=== PATIENT | female | born 2000 | race Hispanic/Latino ===

== ENCOUNTER 2019-03-14 20:24 | Emergency (ER) | payer OTHER ==
[~2019-03-14] VITALS: Ht 157.5 cm; Wt 52.8 kg
[2019-03-14 22:18] LABS: HEMATOCRIT 35.6 % (36.0-47.0); HEMOGLOBIN 12.7 g/dl (12.0-15.5); MEAN CORPUSCULAR HEMOGLOBIN 31.5 pg (27.0-33.0); MEAN CORPUSCULAR HGB CONC 35.7 g/dl (32.0-36.5); MEAN CORPUSCULAR VOLUME 88.3 fl (80.0-96.0); PLATELET COUNT, AUTOMATED 222 10^3/uL (150-450); RED BLOOD COUNT 4.03 10^6/uL (4.00-5.40); WHITE BLOOD COUNT 10.2 10^3/uL (4.0-10.0)
[2019-03-14 22:29] LABS: INR 1.09; PROTHROMBIN TIME 13.8 SECONDS (11.8-14.0)
[2019-03-14 22:30] LABS: PARTIAL THROMBOPLASTIN TIME 34.5 SECONDS (25.0-38.4)
[2019-03-14] MEDS ORDERED: REGL5TAB2 PO (23:08)
[2019-03-14] MEDS ORDERED: NON-325T5 PO (23:08)
[2019-03-14 23:24] VITALS: BP 118/64
--- NOTE | 2019-03-15 06:33 | ECGEPIP ---
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
--- NOTE | 2019-03-16 12:01 | REP ---
CHEST PA AND LATERAL: 03/14/2019. CLINICAL HISTORY: Left-sided chest pain. Patient . Appropriate shielding. FINDINGS: There are no prior studies. The two-view show lungs well inflated and without infiltrate, effusion, atelectasis, or mass. The heart, mediastinal and hilar contours are normal. The aorta and airway are intact. The bony thorax shows no focal lesion. There is no free air under the diaphragm. IMPRESSION: 1. No acute cardiopulmonary change. Electronically Signed by Chaim Arenas MD 03/16/2019 12:22 P
== END 2019-03-14 23:37 | disposition home or self-care (01) ==
LOC: M ED 20:24
DX: G43.909 Migraine, unspecified, not intractable, without status migrainosus (principal); R07.89 Other chest pain; R00.0 Tachycardia, unspecified

== ENCOUNTER → 2019-04-02 | Outpatient (CLI) | payer OTHER ==
[~2019-04-02] MED LIST: NON-325T5 PO; REGL5TAB2 PO
[2019-04-02 14:09] LABS: BASO % 0.3 % (0.0-1.0); EOS # 0.3 10^3/uL (0.0-0.5); EOS % 2.8 % (0.0-3.0); HEMATOCRIT 38.1 % (36.0-47.0); LYMPH # 1.6 10^3/uL (1.5-5.0); LYMPH % 13.3 % (24.0-44.0); MEAN CORPUSCULAR HEMOGLOBIN 31.6 pg (27.0-33.0); MEAN CORPUSCULAR HGB CONC 34.1 g/dl (32.0-36.5); MEAN CORPUSCULAR VOLUME 92.7 fl (80.0-96.0); MONO # 0.7 10^3/uL (0.0-0.8); MONO % 5.7 % (0.0-5.0); NEUTROPHILS # 9.2 10^3/uL (1.5-8.5); NEUTROPHILS % 77.2 % (36.0-66.0); PLATELET COUNT, AUTOMATED 235 10^3/uL (150-450); RED BLOOD COUNT 4.11 10^6/uL (4.00-5.40)
[2019-04-02 15:28] LABS: GC DNA AMPLIFICATION NEGATIVE (NEGATIVE)
[2019-04-03 06:28] LABS: CHLAMYDIA DNA AMPLIFICATION NEGATIVE (NEGATIVE)
[2019-04-03 06:28] LABS: WHITE BLOOD COUNT 11.9 10^3/uL (4.0-10.0)
[2019-04-03 12:23] LABS: HEPATITIS B SURFACE ANTIGEN NEGATIVE (NEGATIVE); HEPATITIS C VIRUS ABY INDEX 0.1 INDEX (<0.8); HIV 1&2 SCREEN CENTAUR NEGATIVE (NEGATIVE); RUBELLA IgG QUALITATIVE IMMUNE (IMMUNE)
== END ==
LOC: M LAB 13:14
PROVIDERS: ATTEND Advanced Practice Midwife
DX: Z34.02 Encounter for supervision of normal first pregnancy, second trimester (principal); Z3A.00 Weeks of gestation of pregnancy not specified

== ENCOUNTER → 2019-04-15 | Outpatient (CLI) | payer OTHER ==
[~2019-04-15] MED LIST changes: +DOK1CAP7; +FERR32TA; +PREN1CHW6 PO; +PRENTAB9 PO
--- NOTE | 2019-04-16 03:30 | REP ---
Clinical: Anatomical evaluation. Comparison: None . Findings: Examination demonstrates a single live intrauterine in variable presentation. motion is identified by technologist. Placenta is noted posterior fundal and grade zero without evidence for placenta previa or abruption. Amniotic fluid volume is normal. Cervix measures 4.6 cm in length and appears closed. No evidence for nuchal cord. Gestational age by LMP 19 weeks 2 days with MICAELA 09/07/2019 Gestational age by current measurements 19 weeks 0 days with MICAELA 09/09/2019 . FHR equals 150 beats per minute. BPD 4.4 cm 19 weeks 2 days HC 15.3 cm 18 weeks 2 days AC 14.2 cm 19 weeks 4 days FL 2.8 cm 18 weeks 4 days HL 2.7 cm 18 weeks 4 days HC/AC ratio 1.08 Estimated weight 269 grams ( 36 percentile). Anatomical assessment demonstrates normal structures including cranium, choroid plexus, cavum, cerebellum/posterior fossa, facial features, lungs, four-chamber heart/ventricular outflow tracts, diaphragm, stomach, cord insertion/three-vessel cord, kidneys/bladder, spine, and extremities. Echogenic focus within the left cardiac ventricle likely prominent chordae tendineae. Impression: 1. Single live intrauterine in variable presentation demonstrating appropriate interval growth. 2. Anatomical assessment as described above. Electronically Signed by Jaspal Castillo MD 04/16/2019 03:21 A
== END ==
LOC: M RAD 07:56
PROVIDERS: ATTEND Advanced Practice Midwife
DX: Z34.02 Encounter for supervision of normal first pregnancy, second trimester (principal); Z36.89 Encounter for other specified antenatal screening

== ENCOUNTER 2019-05-05 15:47 | Emergency (ER) | payer OTHER ==
[~2019-05-05] VITALS: Ht 157.5 cm; Wt 59.1 kg
[~2019-05-05 15:47] MED LIST changes: -DOK1CAP7; -FERR32TA; -PREN1CHW6 PO; -PRENTAB9 PO
[2019-05-05] MEDS ORDERED: PREN1CHW6 PO (15:57)
[2019-05-05 17:33] VITALS: BP 110/55
== END 2019-05-05 17:37 | disposition home or self-care (01) ==
LOC: M ED 15:47
DX: Z77.29 Contact with and (suspected) exposure to other hazardous substances (principal)

== ENCOUNTER → 2019-06-16 | Outpatient (CLI) | payer OTHER ==
[~2019-06-16] MED LIST changes: +PREN1CHW6 PO
[2019-06-16 14:51] LABS: HEMATOCRIT 32.5 % (36.0-47.0); HEMOGLOBIN 10.3 g/dl (12.0-15.5); MEAN CORPUSCULAR HEMOGLOBIN 29.7 pg (27.0-33.0); MEAN CORPUSCULAR HGB CONC 31.7 g/dl (32.0-36.5); MEAN CORPUSCULAR VOLUME 93.7 fl (80.0-96.0); PLATELET COUNT, AUTOMATED 283 10^3/uL (150-450); RED BLOOD COUNT 3.47 10^6/uL (4.00-5.40); WHITE BLOOD COUNT 9.8 10^3/uL (4.0-10.0)
== END ==
LOC: M LAB 13:05
PROVIDERS: ATTEND Advanced Practice Midwife
DX: O26.02 Excessive weight gain in pregnancy, second trimester (principal); Z3A.00 Weeks of gestation of pregnancy not specified

== ENCOUNTER 2019-07-27 08:54 | Emergency (ER) | payer OTHER ==
[~2019-07-27] VITALS: Ht 157.5 cm; Wt 70.8 kg
[2019-07-27] MEDS ORDERED: DOK1CAP7 (08:59)
[2019-07-27] MEDS ORDERED: FERR32TA (08:59)
[2019-07-27 09:54] LABS: BASO % 0.2 % (0.0-1.0); EOS # 0.2 10^3/uL (0.0-0.5); EOS % 1.9 % (0.0-3.0); HEMATOCRIT 33.2 % (36.0-47.0); HEMOGLOBIN 10.8 g/dl (12.0-15.5); LYMPH # 1.5 10^3/uL (1.5-5.0); LYMPH % 12.5 % (24.0-44.0); MEAN CORPUSCULAR HEMOGLOBIN 30.3 pg (27.0-33.0); MEAN CORPUSCULAR HGB CONC 32.5 g/dl (32.0-36.5); MONO # 1.1 10^3/uL (0.0-0.8); MONO % 8.6 % (0.0-5.0); NEUTROPHILS # 9.3 10^3/uL (1.5-8.5); NEUTROPHILS % 75.1 % (36.0-66.0); PLATELET COUNT, AUTOMATED 221 10^3/uL (150-450); RED BLOOD COUNT 3.57 10^6/uL (4.00-5.40); WHITE BLOOD COUNT 12.4 10^3/uL (4.0-10.0)
[2019-07-27 10:27] LABS: ALT/SGPT 14 U/L (12-78); BILIRUBIN,DIRECT 0.1 MG/DL (0.0-0.2); BILIRUBIN,TOTAL 0.4 MG/DL (0.2-1.0); BLOOD UREA NITROGEN 6 MG/DL (7-18); CALCIUM LEVEL 8.8 MG/DL (8.5-10.1); CARBON DIOXIDE LEVEL 21 MEQ/L (21-32); CHLORIDE LEVEL 108 MEQ/L (98-107); CREATININE FOR GFR 0.52 MG/DL (0.55-1.30); GLOMERULAR FILTRATION RATE > 60.0 (>60); GLUCOSE, FASTING 99 MG/DL (70-100); POTASSIUM SERUM 3.9 MEQ/L (3.5-5.1); SODIUM LEVEL 140 MEQ/L (136-145); TOTAL PROTEIN 6.6 GM/DL (6.4-8.2)
[2019-07-27 10:28] LABS: ALBUMIN 2.6 GM/DL (3.2-5.2)
[2019-07-27] MEDS ORDERED: CEPHALEXIN 500 MG CAP PO ONE (11:00)
[2019-07-27 11:06] VITALS: BP 104/63
== END 2019-07-27 11:09 | disposition home or self-care (01) ==
LOC: M ED 08:54
DX: O99.713 Diseases of the skin and subcutaneous tissue complicating pregnancy, third trimester (principal); L29.9 Pruritus, unspecified; O23.43 Unspecified infection of urinary tract in pregnancy, third trimester; Z3A.34 34 weeks gestation of pregnancy

== ENCOUNTER → 2019-07-30 | Outpatient (CLI) | payer OTHER ==
[~2019-07-30] MED LIST changes: +DOK1CAP7; +FERR32TA
== END ==
LOC: M PLALAB 10:36
PROVIDERS: ATTEND Advanced Practice Midwife
DX: Z34.93 Encounter for supervision of normal pregnancy, unspecified, third trimester (principal)

== ENCOUNTER 2019-08-18 09:29 | Outpatient (CLI) | payer OTHER ==
[~2019-08-18] VITALS: Ht 157.5 cm; Wt 75.0 kg
[2019-08-18] MEDS ORDERED: PRENTAB9 PO (09:46)
--- NOTE | 2019-08-18 16:25 | IPN ---
DATE: 08/18/2019 A 19-year-old 1 at 37-1/7 weeks gestation, presents with leakage of a moderate amount of fluid spontaneously per vagina at 8:45 a.m. on the day of evaluation when she was just standing at the sink and eating something. She continued to leak small amounts after that. She did not have to wear a pad, however. She has occasional mild contractions. They have not increased in intensity. She presents to triage for evaluation. She was noted to be breech at her last visit. OBJECTIVE: She is afebrile. Blood pressure 124/74, pulse 84. She is in no apparent distress. Head and neck exam: Normal. Lungs: Clear. Heart: Regular rate and rhythm. Abdomen: Nontender, gravid. heart tones: Category 1. Contractions: Irregular, mild. Sterile speculum exam: Negative fern, negative pool, indeterminate Nitrazine. Cervix: 1 cm, 50%, high, breech. Extremities: Nontender. ASSESSMENT: A 19-year-old 1 at 37-1/7 weeks gestation, presents for evaluation with no evidence of ruptured membranes on exam. PLAN: The patient offered and accepted attempted external cephalic version, consent signed. This will be performed today. No evidence of leaking amniotic fluid. Plan to discharge home after attempted external version.
[2019-08-27] MEDS ORDERED: [UNRECOGNIZED DRUG - OTHER] PO (07:59)
[2019-08-27] MEDS ORDERED: COUGH PO (07:59)
== END 2019-08-18 14:53 | disposition home or self-care (01) ==
LOC: M LDO 09:29
PROVIDERS: ATTEND Specialist
DX: Z03.71 Encounter for suspected problem with amniotic cavity and membrane ruled out (principal); O32.1XX0 Maternal care for breech presentation, not applicable or unspecified; Z3A.37 37 weeks gestation of pregnancy
CPT/HCPCS: 59025; 76815; G0378; G0463

== ENCOUNTER 2019-08-31 04:53 | Inpatient (IN) | payer OTHER ==
[~2019-08-31] VITALS: Ht 157.5 cm; Wt 74.6 kg
[~2019-08-31 04:53] MED LIST changes: +COUGH PO; +PRENTAB9 PO; +[UNRECOGNIZED DRUG - OTHER] PO
[2019-08-31 05:37] VITALS: BP 109/60
[2019-08-31 05:53] LABS: HEMATOCRIT 37.9 % (36.0-47.0); HEMOGLOBIN 12.1 g/dl (12.0-15.5); MEAN CORPUSCULAR HEMOGLOBIN 28.5 pg (27.0-33.0); MEAN CORPUSCULAR HGB CONC 31.9 g/dl (32.0-36.5); MEAN CORPUSCULAR VOLUME 89.4 fl (80.0-96.0); PLATELET COUNT, AUTOMATED 272 10^3/uL (150-450); RED BLOOD COUNT 4.24 10^6/uL (4.00-5.40); WHITE BLOOD COUNT 8.5 10^3/uL (4.0-10.0)
[2019-08-31] MEDS ORDERED: LACTATED RINGER'S 1000 ML IV ONE (06:00)
[2019-08-31] MEDS ORDERED: LR 1,000 ML IV SCH ×2 (06:00→09:00)
[2019-08-31] MEDS ORDERED: BICITRA 30ML SOLN UDC PO ONE (06:00)
[2019-08-31] MEDS ORDERED: ceFAZolin SOD 2 GM in IV 1 EA IV ONE (06:00)
[2019-08-31] MEDS ORDERED: OXYC1TAB23 PO (06:24)
[2019-08-31] MEDS ORDERED: MORPHINE PRES-FREE INJ 10 MG/10 ML VIAL (J2274) As Ordered ONE (06:48)
[2019-08-31] MEDS ORDERED: METOCLOPRAMIDE INJ 10MG/2ML VIAL (J2765) IV PRN (08:10)
[2019-08-31] MEDS ORDERED: NALBUPHINE HCL 10 MG/ML AMP (J2300) IV PRN ×2 (08:10→09:30)
[2019-08-31] MEDS ORDERED: ONDANSETRON 4MG/2ML VIAL (J2405) IV PRN ×2 (08:10→09:30)
[2019-08-31] MEDS ORDERED: NALOXONE INJ 0.4 MG/1 ML VIAL (J2310) IV PRN ×2 (08:10)
[2019-08-31] MEDS ORDERED: diphenhydrAMINE INJ 50MG/ML VIAL (J1200) IV PRN (08:10)
[2019-08-31] MEDS ORDERED: OXYTOCIN 30 UNITS IN 0.9% NaCl 500ML IV BAG (J2590) As Ordered ONE (08:17)
[2019-08-31] MEDS ORDERED: PHENYLephrine HCL 500 MCG/5 ML (100MCG/ML) SYRINGE (J2370) As Ordered ONE ×2 (08:17→08:18)
[2019-08-31] MEDS ORDERED: dexameTHASONE 4 MG/ML 1ML VIAL (J1100) As Ordered ONE (08:17)
[2019-08-31] MEDS ORDERED: ePHEDrine SULFATE 25 MG/5 ML(5MG/ML) SYRINGE As Ordered ONE (08:17)
[2019-08-31] MEDS ORDERED: OXYTOCIN INJ 10 UNITS/ML VIAL (J2590) As Ordered ONE (08:35)
[2019-08-31] MEDS ORDERED: MEASLES,MUMPS,RUBELLA VACCINE INJ (MMR-II) (90707) SC SCH (09:00)
[2019-08-31] MEDS ORDERED: ONDANSETRON 4 MG ORAL DISINTEGRATING TAB (Q0162 PER 1MG) PO PRN (09:00)
[2019-08-31] MEDS ORDERED: PERCOCET 5MG/325MG TAB PO PRN ×2 (09:00)
[2019-08-31] MEDS ORDERED: OXYTOCIN DRIP 30 UNITS in IV 1 EA IV SCH (09:00)
[2019-08-31] MEDS: PRENATAL VITAMINS CHEWABLE TABLET PO SCH (09:00)
[2019-08-31] MEDS ORDERED: RHOGAM 300 MCG (1500 IU) INJ (J2790) IM SCH (09:00)
[2019-08-31] MEDS ORDERED: fentaNYL 100 MCG/2 ML INJECTION (J3010) IV PRN (09:30)
[2019-08-31] MEDS ORDERED: KETOROLAC 30 MG/ML VIAL (J1885) As Ordered ONE (10:38)
[2019-08-31] MEDS: KETOROLAC 30 MG/ML VIAL (J1885) IV SCH ×3 (10:40→22:48)
[2019-08-31 11:00] VITALS: BP 120/67
[2019-08-31 11:30] VITALS: BP 119/72
--- NOTE | 2019-08-31 11:32 | RO ---
DATE OF PROCEDURE: 08/31/2019 PREOPERATIVE DIAGNOSIS: 39 weeks breech presentation. POSTOPERATIVE DIAGNOSIS: 39 weeks breech presentation. PROCEDURE: Primary low transverse section. SURGEON: Mehrdad Clemente MD PRECAST CONCRETE IRONWORKER: ANESTHESIA: Spinal. ESTIMATED BLOOD LOSS: 500 mL. URINE OUTPUT: 100 mL. FINDINGS: 8 pound 4 ounce, 3740 gram male . scores of 8 and 9 in footling breech presentation. Normal uterus, fallopian tubes and ovaries. OPERATIVE SUMMARY: The patient was taken to the operating room where spinal anesthesia was induced. She was prepped and draped in a sterile fashion in supine position. A Ugarte catheter was placed. A Pfannenstiel skin incision was made with a scalpel and carried through to the fascia. The fascia was nicked and extended. The fascia was dissected off the rectus muscles. The peritoneal cavity was entered. A bladder flap was created. A curvilinear incision was made in the lower uterine segment until clear fluid was noted. This was extended manually. The infant was delivered in a breech presentation using standard maneuvers without difficulty. The cord was doubly clamped and cut. The was handed off to the awaiting nurses. The placenta was expressed. The uterus was closed with #0 Vicryl in a running locked fashion. A second imbricating layer of #0 Vicryl was placed. The peritoneum was closed with #2-0 Vicryl. The fascia was closed with #0 Vicryl. The deep layer was irrigated and closed with #2-0 chromic. The skin was closed with #4-0 Monocryl subcuticular sutures. Sponge, instrument and needle counts were correct.
[2019-08-31 12:30] VITALS: BP 139/68
[2019-08-31 13:30] VITALS: BP 102/56
[2019-08-31 17:58] VITALS: BP 112/54
[2019-08-31] MEDS: DOCUSATE SODIUM 100 MG CAP PO PRN (19:52)
[2019-09-01 01:38] VITALS: BP 108/58
[2019-09-01] MEDS: KETOROLAC 30 MG/ML VIAL (J1885) IV SCH (05:36)
[2019-09-01 06:18] VITALS: BP 111/55
[2019-09-01 06:51] LABS: HEMATOCRIT 28.7 % (36.0-47.0); HEMOGLOBIN 9.5 g/dl (12.0-15.5); MEAN CORPUSCULAR HEMOGLOBIN 29.9 pg (27.0-33.0); MEAN CORPUSCULAR HGB CONC 33.1 g/dl (32.0-36.5); MEAN CORPUSCULAR VOLUME 90.3 fl (80.0-96.0); PLATELET COUNT, AUTOMATED 238 10^3/uL (150-450); RED BLOOD COUNT 3.18 10^6/uL (4.00-5.40); WHITE BLOOD COUNT 14.2 10^3/uL (4.0-10.0)
--- NOTE | 2019-09-01 07:45 | IPNPDOC ---
Progress Note Date of Service: Sep 01, 2019 Day#: 1 Progress Note SUBJECT: She has been ambulating, voiding spontaneously without issue and tolerating regular diet. Catheter has been removed and IV is saline locked. OBJECTIVE: VITAL SIGNS: Within normal limits, afebrile. Alert and oriented times three. Breath sounds clear to auscultation. Heart rate: Regular rate and rhythm, no murmurs, rubs or gallops. Abdomen: Fundus firm at U. Minimal lochia. ASSESSMENT: day 1 postoperative due to breech presentation PLAN: 1. continue supportive nursing care. 2. Patient may shower today. 3. Anticipate discharge to home tomorrow. VS, I&O, 24H, Fishbone Vital Signs/I&O Vital Signs Date Time Temp Pulse Resp B/P (MAP) Pulse Ox O2 Delivery O2 Flow Rate FiO2 09/01/19 06:18 97.9 84 16 111/55 (73) 97 Room Air 97.9 l I&O- Last 24 Hours up to 6 AM 09/01/19 06:00 Intake Total 6000 ml Output Total 3800 ml Balance 2200 ml Laboratory Data 24H LABS Laboratory Tests 2 09/01/19 06:27: Nucleated Red Blood Cells % (auto) 0.0 CBC/BMP Laboratory Tests 09/01/19 06:27 HU SAAVEDRA CNM Sep 01, 2019 07:45
[2019-09-01] MEDS: PRENATAL VITAMINS CHEWABLE TABLET PO SCH (09:48)
[2019-09-01 10:06] VITALS: BP 103/52
[2019-09-01] MEDS: IBUPROFEN 800 MG TAB PO SCH ×2 (12:17→19:58)
[2019-09-01 14:15] VITALS: BP 117/65
[2019-09-01 18:18] VITALS: BP 113/57
[2019-09-01] MEDS: DOCUSATE SODIUM 100 MG CAP PO PRN (19:58)
[2019-09-01 22:00] VITALS: BP 118/61
[2019-09-02 02:30] VITALS: BP 112/52
[2019-09-02] MEDS: IBUPROFEN 800 MG TAB PO SCH ×2 (04:22→11:30)
[2019-09-02 06:11] VITALS: BP 109/62
[2019-09-02] MEDS: PRENATAL VITAMINS CHEWABLE TABLET PO SCH (09:18)
== END 2019-09-02 12:00 | disposition home or self-care (01) | DRG 773 ==
LOC: M LDI 04:53 → M OBS 10:50
PROVIDERS: ADMIT Specialist; ATTEND Specialist
PROC: 10D00Z1 Extraction of Products of Conception, Low, Open Approach (ICD-10-PCS; principal; 2019-08-31 07:30)
DX: O32.8XX0 Maternal care for other malpresentation of fetus, not applicable or unspecified (principal); Z3A.39 39 weeks gestation of pregnancy; Z37.0 Single live birth

== ENCOUNTER 2019-09-25 17:46 | Emergency (ER) | payer OTHER ==
[~2019-09-25] VITALS: Ht 157.5 cm; Wt 64.0 kg
[~2019-09-25 17:46] MED LIST changes: +OXYC1TAB23 PO
[2019-09-25] MEDS ORDERED: ACET-683 PO (18:53)
[2019-09-25] MEDS ORDERED: METOCLOPRAMIDE INJ 10MG/2ML VIAL (J2765) IV ONE (19:45)
[2019-09-25] MEDS ORDERED: KETOROLAC 30 MG/ML VIAL (J1885) IV ONE (19:45)
[2019-09-25] MEDS ORDERED: REGL10TA6 PO (20:46)
[2019-09-25 21:13] VITALS: BP 101/67
== END 2019-09-25 21:13 | disposition home or self-care (01) ==
LOC: M ED 17:46
DX: G43.909 Migraine, unspecified, not intractable, without status migrainosus (principal)
CPT/HCPCS: 96374; 96375; 99284; J1885; J2765

== ENCOUNTER → 2020-02-22 | Emergency (ER) | payer OTHER ==
[~2020-02-22] MED LIST changes: +ACET-683 PO; +REGL10TA6 PO
--- NOTE | 2020-04-13 11:07 | ECGEPIP ---
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
== END | disposition left against medical advice (07) ==
LOC: M ED 16:40
DX: Z53.21 Procedure and treatment not carried out due to patient leaving prior to being seen by health care provider (principal)

== ENCOUNTER → 2020-03-04 | Outpatient (CLI) | payer OTHER ==
[2020-04-02 03:49] LABS: BASO # 0.1 10^3/uL (0.0-0.2); BASO % 0.8 % (0.0-1.0); EOS # 0.3 10^3/uL (0.0-0.5); EOS % 4.1 % (0.0-3.0); HEMATOCRIT 44.9 % (36.0-47.0); HEMOGLOBIN 14.8 g/dl (12.0-15.5); LYMPH % 30.4 % (24.0-44.0); MONO # 0.5 10^3/uL (0.0-0.8); NEUTROPHILS # 3.7 10^3/uL (1.5-8.5); NEUTROPHILS % 56.5 % (36.0-66.0); PLATELET COUNT, AUTOMATED 277 10^3/uL (150-450); WHITE BLOOD COUNT 6.6 10^3/uL (4.0-10.0)
[2020-04-18 19:30] LABS: ALBUMIN 4.4 GM/DL (3.2-5.2); ALT/SGPT 17 U/L (12-78); BILIRUBIN,TOTAL 0.8 MG/DL (0.2-1.0); BLOOD UREA NITROGEN 9 MG/DL (7-18); CALCIUM LEVEL 9.9 MG/DL (8.5-10.1); CARBON DIOXIDE LEVEL 27 MEQ/L (21-32); CHLORIDE LEVEL 107 MEQ/L (98-107); CREATININE FOR GFR 0.68 MG/DL (0.55-1.30); FREE T4 1.18 NG/DL (0.76-1.46); GLOMERULAR FILTRATION RATE > 60.0 (>60); GLUCOSE, FASTING 83 MG/DL (70-100); POTASSIUM SERUM 4.2 MEQ/L (3.5-5.1); SODIUM LEVEL 140 MEQ/L (136-145); TOTAL PROTEIN 7.9 GM/DL (6.4-8.2)
== END ==
LOC: M LAB 14:35
PROVIDERS: ATTEND Nurse Practitioner Family
DX: Z00.00 Encounter for general adult medical examination without abnormal findings (principal)

== ENCOUNTER → 2020-03-30 | Outpatient (REF) | payer OTHER | LOC: M SFHCWAGY 14:00 | PROVIDERS: ATTEND Advanced Practice Midwife | DX: Z12.4 Encounter for screening for malignant neoplasm of cervix (principal) ==

== ENCOUNTER → 2020-08-30 | Outpatient (REF) | payer OTHER ==
[~2020-08-30] MED LIST changes: +ACET-838 PO; -NON-325T5 PO
[2020-08-30 14:26] LABS: HEMATOCRIT 42.6 % (36.0-47.0); HEMOGLOBIN 13.8 g/dl (12.0-15.5); MEAN CORPUSCULAR HEMOGLOBIN 29.1 pg (27.0-33.0); MEAN CORPUSCULAR HGB CONC 32.4 g/dl (32.0-36.5); MEAN CORPUSCULAR VOLUME 89.9 fl (80.0-96.0); PLATELET COUNT, AUTOMATED 270 10^3/uL (150-450); RED BLOOD COUNT 4.74 10^6/uL (4.00-5.40); WHITE BLOOD COUNT 9.2 10^3/uL (4.0-10.0)
[2020-08-30 15:47] LABS: HEPATITIS C VIRUS ABY INDEX < 0.0 INDEX (<0.8); HIV 1&2 SCREEN CENTAUR NEGATIVE (NEGATIVE)
[2020-08-30 16:07] LABS: CHLAMYDIA DNA AMPLIFICATION POSITIVE (NEGATIVE); GC DNA AMPLIFICATION NEGATIVE (NEGATIVE)
== END ==
LOC: M PLALAB 10:29
PROVIDERS: ATTEND Advanced Practice Midwife
DX: O34.219 Maternal care for unspecified type scar from previous cesarean delivery (principal)
CPT/HCPCS: 36415; 85027; 86762; 86780; 86803; 86850; 86900; 86901; 87088; 87186; 87340; 87389; 87491; 87591; G0463